=== PATIENT | female | born 1965 | race Caucasian/White ===

== ENCOUNTER 2022-12-04 12:23 | Emergency (ER) | payer OTHER, MEDICAID, SELFPAY ==
[2022-12-04] VITALS (11 sets, daily range): BP systolic 131–159; BP diastolic 75–104; PULSE 75–120; RESP 16–25; TEMP 36.2; O2SAT 94–100; BMI 29.9
[2022-12-04] MEDS: methylPREDNISolone 125 MG/2 ML VIAL (12:34)
[2022-12-04] MEDS: FAMOTIDINE 20 MG/2 ML VIAL IV (12:35)
--- NOTE | 2022-12-04 12:58 | ED.ALLEREA ---
HPI - Allergic Reaction General Chief complaint: Allergic Reaction Stated complaint: Stung 4x, Severely alergic Time Seen by Provider: 12/04/22 12:35 Source: patient Mode of arrival: Ambulatory History of Present Illness HPI narrative: Patient here for allergic reaction to bee sting. She has for bee stings 1 on the chest 1 on the hand 1 on the right thigh 1 on the right foot. She was cutting grass at home. She has allergy to bee stings. She did not use her EpiPen. She states over 20 years ago she was in [place] and had EpiPen given and since then the doctor at that time told her never to use it again because irregular heartbeat. Patient took 50 mg of Benadryl prior to arrival. Solu-Medrol IV and Pepcid IV given here. Patient is speaking full sentences. Airways intact. No respiratory distress. No intraoral pharyngeal swelling tongue swelling tongue elevation or drooling. Patient has friend at bedside, interacting very well. Patient felt her throat tight Related Data Previous Rx's Medication Instructions Recorded epinephrine 0.3 mg/0.3 mL 0.3 mg (0.3 mL) IM Q5-15M PRN 12/04/22 injection, auto-injector (EpiPen) anaphylaxis #2 ea famotidine 20 mg tablet 20 mg PO BID #14 tabs 12/04/22 methylprednisolone 4 mg tablets in See Rx Instructions PO .COMPLEX 12/04/22 a dose pack (Medrol (Bob)) #21 ea Allergies Allergy/AdvReac Type Severity Reaction Status Date / Time bee venom protein (honey bee) Allergy Anaphylaxis Verified 12/04/22 12:37 naproxen Allergy Anaphylaxis Verified 12/04/22 12:37 orange Allergy Verified 12/04/22 12:37 Penicillins Allergy Verified 12/04/22 12:37 Sulfa (Sulfonamide Allergy Verified 12/04/22 12:37 Antibiotics) Review of Systems Review of Systems Narrative: GENERAL: negative chills, fatigue, malaise, fever, sweats. HEENT: negative sinus pain, ear pain, sore throat RESPIRATORY: negative dyspnea, cough CARDIOVASCULAR: negative chest pain, palpitations GASTROINTESTINAL: negative nausea, vomiting, abdominal pain : negative dysuria, frequency, hematuria MUSCULOSKELETAL: negative muscle or bony pain SKIN: negative rash, skin lesions, positive insect bite/sting NEUROLOGIC: negative weakness, numbness ROS Unobtainable: All systems reviewed & are unremarkable except as noted in HPI and below Patient History Social History Smoking Status: Never smoker Smoking Status: Never smoker alcohol intake frequency: holidays/special occasions only Substance Use Type: does not use Exam Narrative Exam Narrative: GENERAL: in no distress, not toxic not dyspneic HEAD: Normocephalic. EYES: Pupils equal round ENT: Mucous membranes moist. No intraoral swelling edema no tongue elevation no tongue swelling no lip swelling no uvula swelling no midline shift no pharyngeal erythema edema. Patient is speaking full sentences. NECK: Trachea midline. No stridor CARDIOVASCULAR: Regular rate and rhythm without murmurs RESPIRATORY: Clear to auscultation. Breath sounds equal bilaterally. No wheezes, rales, or rhonchi. Clear and equal lung sounds, speaking full sentences GASTROINTESTINAL: Abdomen soft, non-tender EXTREMITIES: No gross deformities. BACK: No flank tenderness. NEURO: AOx4. SKIN: Warm and dry, visible bee sting on the right upper chest right hand right foot and right upper thigh, no stinger sac seen PSYCH: Not anxious, is cooperative Initial Vital Signs Initial Vital Signs: Vital Signs Temperature 97.1 F L 12/04/22 12:25 Pulse Rate 120 H 12/04/22 12:25 Respiratory Rate 20 12/04/22 12:25 Blood Pressure 157/104 H 12/04/22 12:25 Pulse Oximetry 99 12/04/22 12:25 Oxygen Delivery Method Room Air 12/04/22 12:25 Course Orders Ordered: Discontinued Medications Diphenhydramine HCl (Diphenhydramine 50 Mg/Ml Vial) 25 mg IV NOW ONE Stop: 12/04/22 13:49 Last Admin: 12/04/22 13:50 Dose: 25 mg Documented By: SAI Epinephrine HCl (Epinephrine 1 Mg/Ml) 0.3 mg IM NOW ONE Stop: 12/04/22 13:36 Last Admin: 12/04/22 13:38 Dose: 0.3 mg Documented By: SAI Sodium Chloride (Normal Saline 0.9%) 1,000 mls @ 1,000 mls/hr IV BOLUS ONE Stop: 12/04/22 14:01 Last Infusion: 12/04/22 14:57 Dose: 0 mls/hr Documented By: Admin: 12/04/22 13:28 Dose: 1,000 mls/hr Documented By: SAI Lorazepam (Lorazepam 2 Mg/Ml Inj) 0.5 mg IV NOW ONE Stop: 12/04/22 13:54 Last Admin: 12/04/22 15:33 Dose: 0.5 mg Documented By: SAI Vital Signs Vital signs: Vital Signs - 8 hr 12/04/22 12:25 12/04/22 12:33 12/04/22 12:33 Temperature 97.1 F L Pulse Rate 120 H 102 H Respiratory Rate 20 16 Blood Pressure 157/104 H 159/95 H 159/99 H Pulse Oximetry 99 99 Oxygen Delivery Method Room Air Room Air 12/04/22 13:00 12/04/22 13:00 12/04/22 13:30 Temperature Pulse Rate 92 H Respiratory Rate 20 Blood Pressure 155/101 H 145/95 H Pulse Oximetry 98 Oxygen Delivery Method 12/04/22 13:30 12/04/22 14:00 12/04/22 14:00 Temperature Pulse Rate 75 79 Respiratory Rate 20 24 Blood Pressure 152/86 H Pulse Oximetry 98 100 Oxygen Delivery Method 12/04/22 14:30 12/04/22 14:30 12/04/22 15:00 Temperature Pulse Rate 78 Respiratory Rate Blood Pressure 144/102 H 138/81 Pulse Oximetry 98 Oxygen Delivery Method 12/04/22 15:00 12/04/22 15:30 12/04/22 15:30 Temperature Pulse Rate 80 85 Respiratory Rate 22 20 Blood Pressure 146/81 H Pulse Oximetry 100 100 Oxygen Delivery Method 12/04/22 16:00 12/04/22 16:01 12/04/22 16:01 Temperature Pulse Rate 97 H 99 H Respiratory Rate 24 25 H Blood Pressure 150/83 H Pulse Oximetry 100 94 Oxygen Delivery Method 12/04/22 16:30 12/04/22 16:30 Temperature Pulse Rate 94 H Respiratory Rate 22 Blood Pressure 131/75 Pulse Oximetry 99 Oxygen Delivery Method MDM - Allergic Reaction MDM Narrative Medical decision making narrative: Patient here for allergic reaction to bee sting. She has for bee stings 1 on the chest 1 on the hand 1 on the right thigh 1 on the right foot. She was cutting grass at home. She has allergy to bee stings. She did not use her EpiPen. She states over 20 years ago she was in [place] and had EpiPen given and since then the doctor at that time told her never to use it again because irregular heartbeat. Patient took 50 mg of Benadryl prior to arrival. Solu-Medrol IV and Pepcid IV given here. Patient is speaking full sentences. Airways intact. No respiratory distress. No intraoral pharyngeal swelling tongue swelling tongue elevation or drooling. Patient has friend at bedside, interacting very well. 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 Pertinent findings: None indicated Imaging studies independently reviewed: None indicated Consultations: None indicated Treatments: Solu-Medrol Pepcid normal saline epinephrine Ativan, Ativan was given for anxiety. Benadryl Re-evaluations: 1:54 p.m.. Patient was given epinephrine 0.3 mg IM 15 minutes ago for sensation of itching everywhere and throat swelling and tongue swelling. On exam I do not see any swelling of these items. Benadryl 25 mg IV was added. However, it has been 15 minutes and patient states her tongue feels swollen. On exam I do not see any angioedema or swelling of the lips or tongue. She is feeling pruritic however I do not see any hives or rash on her arms or face or chest. She is speaking full sentences. Nurse at bedside speaking with her. She is in no airway distress. At this time there may be component of anxiety with everything that is going on, I will add 0.5 mg of Ativan 4:30 p.m.. Patient feeling much better. Has been observed for 4 hours here. No adverse events. She desires discharge home. Return precautions reviewed with her. She desires discharge home. Discussion: Appropriate for discharge home. Patient observed here for 4 hours. Not toxic. No adverse events. Airway intact. Patient desires discharge home. Diagnosis: Allergic reaction to bee sting Discharge Plan Departure Patient Disposition: Home Clinical Impression: Bee sting allergy Instructions: DI for Anaphylaxis Activity Restrictions/Additional Instructions: See family doctor within a week for re-evaluation. Call provided primary care referral phone number to establish family doctor. Call [phone]. Return immediately if any trouble breathing or any throat tightening or oral swelling. Please continue steroid pack tomorrow. Refill prescription for EpiPen has been provided. Return if worse if any questions or concerns. May take [id number] Benadryl for itching. Prescriptions: New epinephrine [EpiPen] 0.3 mg/0.3 mL auto-injector 0.3 mg IM Q5-15M PRN (Reason: anaphylaxis) Qty: 2 0RF Rx Instructions: do not exceed 3 doses per episode famotidine 20 mg tablet 20 mg PO BID Qty: 14 0RF methylprednisolone [Medrol (Bob)] 4 mg tablets,dose pack See Rx Instructions .ROUTE .COMPLEX Qty: 21 0RF Rx Instructions: orally per package directions Stand Alone Forms: Patient Portal/API
[2022-12-04] MEDS: SODIUM CHLORIDE 0.9% 1,000 ML 1000 ML IV (13:28)
[2022-12-04] MEDS: EPINEPHrine 1 MG/ML 0.3 MG IM (13:38)
[2022-12-04] MEDS: diphenhydrAMINE 50 MG/ML VIAL 25 MG IV (13:50)
[2022-12-04] MEDS: LORazepam 2 MG/ML INJ 0.5 MG IV (15:33)
== END 2022-12-04 16:47 | disposition home or self-care (01) ==
PROVIDERS: Emergency Provider Emergency Medicine
DX: T63.441A Toxic effect of venom of bees, accidental (unintentional), initial encounter (principal); L29.9 Pruritus, unspecified
CPT/HCPCS: 96361; 96372; 96374; 96375; 99284; J0171; J1200; J2060; J2930

== ENCOUNTER 2023-11-06 12:24 | Emergency (ER) | payer MEDICAID, OTHER, SELFPAY ==
[2023-11-06 12:47] VITALS: BP 177/88; PULSE 67; RESP 20; TEMP 37; O2SAT 99; BMI 29.8
--- NOTE | 2023-11-06 13:21 | DI.RAD.S_ITS ---
PROCEDURE: XR CHEST 1V INDICATIONS: Hypertension TECHNIQUE: One view of the chest was acquired. COMPARISON: None. FINDINGS: Surgical changes and devices: None. Lungs and pleura: Medial right lower lung zone opacity. Mediastinum: Mediastinal contours appear normal. Heart size is normal. Bones and chest wall: No suspicious bony lesions. Overlying soft tissues appear unremarkable. IMPRESSION: Medial right lower lung zone opacity could represent atelectasis or infection. Dictated by: Rusty Gonzalez M.D. on 11/06/2023 at 13:55 Approved by: Rusty Gonzalez M.D. on 11/06/2023 at 13:56
--- NOTE | 2023-11-06 14:23 | EKG_ITS ---
[place] [id number] [place] [id number] Test Date: 2023-11-06 Pat Name: Miles Bauer Department: 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
[2023-11-06 14:24] LABS: Add Manual Diff / Slide Review NO; Basophils Absolute Auto 100 /uL (0-100); Basophils Percent Auto 1.2 % (0-2); Eosinophils Absolute Auto 100 /uL (0-450); Eosinophils Percent Auto 1.4 % (2-4); Hematocrit 41.5 % (36-46); Hemoglobin 13.7 g/dL (12.0-16.0); Lymphocytes Absolute Auto 1400 /uL (1100-4500); Lymphocytes Percent Auto 26.3 % (25-40); Mean Corpuscular Hemoglobin 28.2 PG (26-34); Mean Corpuscular Volume 85.3 fL (80-100); Monocytes Absolute Auto 400 /uL (0-900); Monocytes Percent Auto 7.1 % (3-14); Neutrophils Absolute Auto 3300 /uL (1500-7000); Platelet Count 267 X10^3/uL (150-400); Red Blood Cell Count 4.87 X10^6/uL (4.0-5.2); Red Cell Distribution Width 14.2 % (11.6-14.8); White Blood Cell Count 5.1 X10^3/uL (4.5-11.0)
[2023-11-06 14:37] LABS: Creatine Kinase 44 U/L (30-135)
[2023-11-06 14:50] LABS: Troponin I < 0.012 ng/mL (0.01-0.034)
[2023-11-06 14:53] LABS: Alanine Aminotransferase 17 IU/L (<35); Albumin 4.7 g/dL (3.5-5.0); Albumin Globulin Ratio 1.7 (1.0-2.8); Alkaline Phosphatase 82 U/L (38-126); Aspartate Aminotransferase 23 IU/L (14-36); BUN Creatinine Ratio 14.9 (6-22); Bilirubin Total 0.5 mg/dL (0.2-1.3); Blood Urea Nitrogen 11 mg/dL (7-17); Calcium 9.5 mg/dL (8.4-10.2); Carbon Dioxide 27 mmol/L (22-32); Chloride 107 mmol/L (98-107); Estimated Glomerular Filt Rate > 60 mL/min (>60); Globulin 2.8 g/dL (1.7-4.1); Glucose 88 mg/dL (80-110); HEMOLYSIS < 15 (0-50); Lipase 94 U/L (23-300); Potassium 3.9 mmol/L (3.4-5.1); Sodium 140 mmol/L (137-145); Total Protein 7.5 g/dL (6.3-8.2)
[2023-11-06 14:55] VITALS: BP 184/106; PULSE 61; O2SAT 99
[2023-11-06 15:00] VITALS: BP 191/105; PULSE 64; RESP 19; O2SAT 99
--- NOTE | 2023-11-06 15:11 | PC.NURSE ---
pt reports some lightheadedness but states that she hasnt had anything to eat today. reports no chest pain, n/v. states that she feels just like normal. was encouraged to come in by telehealth insurance nurse. does not have PCP
--- NOTE | 2023-11-06 15:19 | ED.GENADULT ---
HPI - General Adult General Chief complaint: Hypertension Stated complaint: HBP sent by PCP Time Seen by Provider: 11/06/23 14:13 Source: patient Mode of arrival: Ambulatory History of Present Illness HPI narrative: Patient is a 58-year-old female who came to the emergency department today for evaluation of high blood pressure. She does not have a primary care doctor. She did have a telehealth appointment this morning. She states she has been feeling somewhat lightheaded. Has a history of asthma but no change in shortness of breath. No chest pain. No history of high blood pressure. She states that she had a family member who had a ?health scare? earlier this year which prompted her to start taking her blood pressures at home. They have run anywhere from a systolic in the 130s to 170s. Her blood pressure this morning was somewhat more elevated than normal which prompted her to make the telehealth visit and visit here to the ER. Related Data Previous Rx's Medication Instructions Recorded epinephrine 0.3 mg/0.3 mL 0.3 mg (0.3 mL) IM Q5-15M PRN 12/04/22 injection, auto-injector (EpiPen) anaphylaxis #2 ea famotidine 20 mg tablet 20 mg PO BID #14 tabs 12/04/22 methylprednisolone 4 mg tablets in See Rx Instructions PO .COMPLEX 12/04/22 a dose pack (Medrol (Bob)) #21 ea lisinopril 10 mg tablet 10 mg PO DAILY #30 tabs 11/06/23 Allergies Allergy/AdvReac Type Severity Reaction Status Date / Time bee venom protein (honey bee) Allergy Anaphylaxis Verified 12/04/22 12:37 naproxen Allergy Anaphylaxis Verified 12/04/22 12:37 orange Allergy Verified 12/04/22 12:37 Penicillins Allergy Verified 12/04/22 12:37 Sulfa (Sulfonamide Allergy Verified 12/04/22 12:37 Antibiotics) Review of Systems Review of Systems Narrative: See HPI Patient History Social History Smoking Status: Never smoker Smoking Status: Never smoker alcohol intake frequency: holidays/special occasions only Substance Use Type: does not use Exam Initial Vital Signs Initial Vital Signs: Vital Signs Temperature 98.6 F 11/06/23 12:47 Pulse Rate 67 11/06/23 12:47 Respiratory Rate 20 11/06/23 12:47 Blood Pressure 177/88 H 11/06/23 12:47 Pulse Oximetry 99 11/06/23 12:47 Oxygen Delivery Method Room Air 11/06/23 12:47 Const General: cooperative, comfortable and No ill appearing HENKY Head: normal to inspection and normocephalic Resp Effort & Inspection: normal respiratory effort Auscultation: clear to auscultation bilaterally Cardio Rate: regular rate Rhythm: regular rhythm Neuro General: patient alert, patient awake and moves all extremities Extrem General: No edema Course Orders Ordered: ED Orders 11/06/23 13:21 XR chest 1V Stat EKG-12 Lead Stat 11/06/23 14:16 Complete Blood Count AUTO DIFF Stat Comprehensive Metabolic Panel Stat Lipase Stat Troponin & CK Cardiac Panel Stat Vital Signs Vital signs: Vital Signs - 8 hr 11/06/23 12:47 11/06/23 14:55 11/06/23 14:55 Temperature 98.6 F Pulse Rate 67 61 Respiratory Rate 20 Blood Pressure 177/88 H 184/106 H Pulse Oximetry 99 99 Oxygen Delivery Method Room Air 11/06/23 15:00 11/06/23 15:00 Temperature Pulse Rate 64 Respiratory Rate 19 Blood Pressure 191/105 H Pulse Oximetry 99 Oxygen Delivery Method Medical Decision Making Lab Data Lab results reviewed: Yes I reviewed the patient's lab results. 11/06/23 14:16 11/06/23 14:16 Labs: Lab Results 11/06/23 Range/Units 14:16 WBC 5.1 (4.5-11.0) X10^3/uL RBC 4.87 (4.0-5.2) X10^6/uL Hgb 13.7 (12.0-16.0) g/dL Hct 41.5 (36-46) % MCV 85.3 (80-100) fL MCH 28.2 (26-34) PG MCHC 33.0 (30-36) % RDW 14.2 (11.6-14.8) % Plt Count 267 (150-400) X10^3/uL Neut % (Auto) 64.0 (50-75) % Lymph % (Auto) 26.3 (25-40) % [place] % (Auto) 7.1 (3-14) % Eos % (Auto) 1.4 L (2-4) % Baso % (Auto) 1.2 (0-2) % Neut # (Auto) 3300 (9605-0518) /uL Lymph # (Auto) 1400 (0607-6582) /uL [place] # (Auto) 400 (0-900) /uL Eos # (Auto) 100 (0-450) /uL Baso # (Auto) 100 (0-100) /uL Sodium 140 (137-145) mmol/L Potassium 3.9 (3.4-5.1) mmol/L Chloride 107 (98-107) mmol/L Carbon Dioxide 27 (22-32) mmol/L BUN 11 (7-17) mg/dL Creatinine 0.74 (0.52-1.04) mg/dL Estimated GFR > 60 (>60) mL/min BUN/Creatinine Ratio 14.9 (6-22) Glucose 88 (80-110) mg/dL Calcium 9.5 (8.4-10.2) mg/dL Total Bilirubin 0.5 (0.2-1.3) mg/dL AST 23 (14-36) IU/L ALT 17 (<35) IU/L Alkaline Phosphatase 82 (38-126) U/L Total Creatine Kinase 44 (30-135) U/L Troponin I < 0.012 (0.01-0.034) ng/mL Total Protein 7.5 (6.3-8.2) g/dL Albumin 4.7 (3.5-5.0) g/dL Globulin 2.8 (1.7-4.1) g/dL Albumin/Globulin Ratio 1.7 (1.0-2.8) Lipase 94 (23-300) U/L Imaging Data Chest x-ray: Radiologist's Impression: PROCEDURE: XR CHEST 1V INDICATIONS: Hypertension TECHNIQUE: One view of the chest was acquired. COMPARISON: None. FINDINGS: Surgical changes and devices: None. Lungs and pleura: Medial right lower lung zone opacity. Mediastinum: Mediastinal contours appear normal. Heart size is normal. Bones and chest wall: No suspicious bony lesions. Overlying soft tissues appear unremarkable. IMPRESSION: Medial right lower lung zone opacity could represent atelectasis or infection. ECG Data Attestation: I personally reviewed and interpreted this ECG as follows: Interpretation: Sinus rhythm Ventricular rate is 64 LVH Normal axis No ST T wave changes MDM Narrative Medical decision making narrative: Asymptomatic hypertension here in the emergency department today. Low suspicion for ACS, CVA, TIA, heart failure. Not in renal failure. No lower extremity swelling. Since she was taken her blood pressure daily over the past week and has had a systolic blood pressure greater than 140 most of the time will start her on a low-dose lisinopril. Also recommended that she make contact with the primary care doctor so that they can discuss follow on care. Patient expressed understanding and agreement with plan. Discharge Plan Departure Patient Disposition: Home Clinical Impression: Hypertension Instructions: DI for High Blood Pressure Activity Restrictions/Additional Instructions: It is important that you make contact with the primary care doctor. You can contact [phone]. They can help you establish a primary doctor here in the local area. Take the lisinopril as directed. Continue to take your blood pressure at home like we discussed. Return to the emergency department for new symptoms. Prescriptions: New lisinopril 10 mg tablet 10 mg PO DAILY Qty: 30 3RF No Action epinephrine [EpiPen] 0.3 mg/0.3 mL auto-injector 0.3 mg IM Q5-15M PRN (Reason: anaphylaxis) Qty: 2 0RF Rx Instructions: do not exceed 3 doses per episode famotidine 20 mg tablet 20 mg PO BID Qty: 14 0RF methylprednisolone [Medrol (Bob)] 4 mg tablets,dose pack See Rx Instructions .ROUTE .COMPLEX Qty: 21 0RF Rx Instructions: orally per package directions Referrals: Miscellaneous,Doctor, MD [Primary Care Provider] - Stand Alone Forms: Patient Portal/API
[2023-11-06 15:30] VITALS: BP 172/99; PULSE 66; RESP 22; O2SAT 97
== END 2023-11-06 15:40 | disposition home or self-care (01) ==
PROVIDERS: Emergency Provider Emergency Medicine
DX: I10 Essential (primary) hypertension (principal)
CPT/HCPCS: 36415; 71045; 80053; 82550; 83690; 84484; 85025; 93005; 99283; 99284

== ENCOUNTER → 2023-11-10 14:41 | Outpatient (CLI) | payer MEDICAID, OTHER, SELFPAY ==
[2023-11-10 15:42] LABS: Creatine Kinase 60 U/L (30-135)
[2023-11-12 17:40] LABS: DNA (DS) Antibody 12 IU/mL (0-9); JO-1 Antibody <0.2 AI (0.0-0.9)
[2023-11-12 20:07] LABS: SS A Ro Sjogrens Antibody < 0.2 AI (0.0-0.9); SS B La Sjogrens Antibody < 0.2 AI (0.0-0.9)
== END ==
LOC: LAB 14:44
DX: M33.90 Dermatopolymyositis, unspecified, organ involvement unspecified (principal); L40.8 Other psoriasis; Z79.899 Other long term (current) drug therapy
CPT/HCPCS: 36415; 82085; 82550; 86038; 86225; 86235

== ENCOUNTER → 2023-12-07 10:30 | Outpatient (CLI) | payer OTHER, MEDICAID, SELFPAY ==
--- NOTE | 2023-12-07 10:38 | DI.RAD.S_ITS ---
PROCEDURE: XR HAND RT MIN 3V INDICATIONS: PAIN TECHNIQUE: 3 in views of the hand(s) acquired. COMPARISON: None. FINDINGS: Bones: No fractures or dislocations. Carpal bones are normally aligned. No suspicious bony lesions. Osteoarthritic changes to the carpal carpal joints, carpometacarpal joints and the DIP joints. Soft tissues: No suspicious soft tissue calcifications. IMPRESSION: No acute osseous process. Osteoarthritic changes. Dictated by: Zaire Vizcarra M.D. on 12/07/2023 at 13:38 Approved by: Zaire Vizcarra M.D. on 12/07/2023 at 13:42
--- NOTE | 2023-12-07 10:38 | DI.RAD.S_ITS ---
PROCEDURE: XR KNEE RT 3V INDICATIONS: PAIN TECHNIQUE: 3 views of the knee were acquired. COMPARISON: None. FINDINGS: Bones: No fractures or dislocations. No suspicious bony lesions. Tricompartmental osteoarthritis. Incidental fabella. Incidental bilateral patella Alexa. Soft tissues: No sizable joint effusion. No suspicious soft tissue calcifications. IMPRESSION: 1. No acute osseous process. 2. Tricompartmental osteoarthritis. 3. Incidental bilateral patella Alexa. Dictated by: Zaire Vizcarra M.D. on 12/07/2023 at 13:47 Approved by: Zaire Vizcarra M.D. on 12/07/2023 at 13:52
--- NOTE | 2023-12-07 10:38 | DI.RAD.S_ITS ---
PROCEDURE: XR KNEE LT 3V INDICATIONS: PAIN TECHNIQUE: 3 views of the knee were acquired. COMPARISON: None. FINDINGS: Bones: No acute fracture or dislocation. Incidental fabella. Tricompartmental osteoarthritis. Soft tissues: No sizable joint effusion. No suspicious soft tissue calcifications. IMPRESSION: No acute osseous process. Tricompartmental osteoarthritis. Dictated by: Zaire Vizcarra M.D. on 12/07/2023 at 13:42 Approved by: Zaire Vizcarra M.D. on 12/07/2023 at 13:47
--- NOTE | 2023-12-07 10:38 | DI.RAD.S_ITS ---
PROCEDURE: XR LUMBAR SPINE 2-3V INDICATIONS: PAIN TECHNIQUE: 3 views of the lumbar spine were acquired. COMPARISON: None. FINDINGS: Bones: 5 [id number] vertebrae are present. Grade 1 anterolisthesis of L5 on S1. No vertebral body compression fractures. No suspicious bony lesions. Multilevel facet arthropathy. Mild multilevel disc height loss. Osteoarthritis to both SI joints. Soft tissues: Overlying bowel gas pattern is normal. No suspicious soft tissue calcifications. IMPRESSION: 1. No acute fracture or subluxation. 2. Grade 1 anterolisthesis of L5 on S1. Dictated by: Zaire Vizcarra M.D. on 12/07/2023 at 14:36 Approved by: Zaire Vizcarra M.D. on 12/07/2023 at 14:40
--- NOTE | 2023-12-07 10:38 | DI.RAD.S_ITS ---
PROCEDURE: XR THORACIC SPINE 2V INDICATIONS: PAIN TECHNIQUE: 2 views of the thoracic spine were acquired. COMPARISON: None. FINDINGS: Bones: No fractures or dislocations. No suspicious bony lesions. 12 pairs of ribs are noted, and appear intact where visualized. Mild multilevel disc height loss. Multilevel anterior disc osteophytes. Soft tissues: No paravertebral stripe thickening. IMPRESSION: No acute fracture or subluxation. Dictated by: Zaire Vizcarra M.D. on 12/07/2023 at 14:40 Approved by: Zaire Vizcarra M.D. on 12/07/2023 at 14:45
--- NOTE | 2023-12-07 10:38 | DI.RAD.S_ITS ---
PROCEDURE: XR HAND LT MIN 3V INDICATIONS: PAIN TECHNIQUE: 3 none views of the hand(s) acquired. COMPARISON: None. FINDINGS: Bones: No fractures or dislocations. Carpal bones are normally aligned. No suspicious bony lesions. Osteoarthritic changes to the carpal metacarpal joints and carpal carpal joints. The bones are mildly osteopenic. Soft tissues: No suspicious soft tissue calcifications. IMPRESSION: No acute bony abnormality. Dictated by: Zaire Vizcarar M.D. on 12/07/2023 at 13:35 Approved by: Zaire Vizcarra M.D. on 12/07/2023 at 13:38
[2023-12-07 12:18] LABS: Add Manual Diff / Slide Review NO; Basophils Absolute Auto 0 /uL (0-100); Basophils Percent Auto 1.1 % (0-2); Eosinophils Absolute Auto 100 /uL (0-450); Eosinophils Percent Auto 1.4 % (2-4); Hematocrit 39.4 % (36-46); Hemoglobin 13.2 g/dL (12.0-16.0); Lymphocytes Absolute Auto 1000 /uL (1100-4500); Lymphocytes Percent Auto 24.6 % (25-40); Mean Corpuscular HGB Conc 33.5 % (30-36); Mean Corpuscular Hemoglobin 28.6 PG (26-34); Mean Corpuscular Volume 85.2 fL (80-100); Monocytes Absolute Auto 300 /uL (0-900); Neutrophils Absolute Auto 2700 /uL (1500-7000); Neutrophils Percent Auto 65.9 % (50-75); Platelet Count 242 X10^3/uL (150-400); Red Blood Cell Count 4.62 X10^6/uL (4.0-5.2); White Blood Cell Count 4.1 X10^3/uL (4.5-11.0)
[2023-12-07 12:27] LABS: Alanine Aminotransferase 14 IU/L (<35); Albumin 4.3 g/dL (3.5-5.0); Albumin Globulin Ratio 1.8 (1.0-2.8); Alkaline Phosphatase 85 U/L (38-126); Aspartate Aminotransferase 22 IU/L (14-36); BUN Creatinine Ratio 16.2 (6-22); Bilirubin Total 0.6 mg/dL (0.2-1.3); Blood Urea Nitrogen 12 mg/dL (7-17); Calcium 9.1 mg/dL (8.4-10.2); Carbon Dioxide 23 mmol/L (22-32); Chloride 108 mmol/L (98-107); Cholesterol 246 mg/dL (140-199); Estimated Glomerular Filt Rate > 60 mL/min (>60); Globulin 2.4 g/dL (1.7-4.1); Glucose 96 mg/dL (80-110); HDL Cholesterol 78 mg/dL (40-60); HEMOLYSIS < 15 (0-50); LDL Cholesterol Calculated 152 mg/dL (<100); Sodium 139 mmol/L (137-145); Total Protein 6.7 g/dL (6.3-8.2); Triglycerides 79 mg/dL (35-150)
[2023-12-07 12:29] LABS: Rheumatoid Factor < 8.6 IU/mL (<12.0)
[2023-12-07 12:41] LABS: Free T4, Direct Thyroxine 0.98 ng/dL (0.78-2.19)
[2023-12-07 12:55] LABS: Thyroid Stimulating Hormone 1.96 uIU/mL (0.47-4.68)
[2023-12-09 09:16] LABS: CCP Antibodies IgG/IgA 6 units (0-19)
== END ==
LOC: RAD 10:34
PROVIDERS: PCP Nurse Practitioner Family; Referring Provider Nurse Practitioner Family; Visit Provider Nurse Practitioner Family
DX: M17.0 Bilateral primary osteoarthritis of knee (principal); M22.8X1 Other disorders of patella, right knee; M43.17 Spondylolisthesis, lumbosacral region; M79.641 Pain in right hand; M79.642 Pain in left hand; M25.561 Pain in right knee; M25.562 Pain in left knee; M54.50 Low back pain, unspecified; F41.9 Anxiety disorder, unspecified; Z13.1 Encounter for screening for diabetes mellitus; Z13.220 Encounter for screening for lipoid disorders; M25.50 Pain in unspecified joint; D72.819 Decreased white blood cell count, unspecified
CPT/HCPCS: 36415; 72070; 72100; 73130; 73562; 80053; 80061; 81374; 84439; 84443; 85025; 86200; 86430

== ENCOUNTER → 2023-12-17 11:10 | Outpatient (CLI) | payer OTHER, MEDICAID, SELFPAY ==
--- NOTE | 2023-12-17 11:12 | DI.RAD.S_ITS ---
PROCEDURE: XR DEXA AXIAL SKELETON INDICATIONS: MENOPAUSAL SYNDROME COMPARISON: None. FINDINGS: Lumbar Spine: Bone mineral density 0 point 685 g/cm2, T score -3.0. Left Hip: Bone mineral density 0.689 g/cm2, T score -2.1. Left Femoral Neck: Bone mineral density 0.568 g/cm2, T score -2.5. Right Hip: Bone mineral density 0.685 g/cm2, T score -2.1. Right Femoral Neck: Bone mineral density is 0.624 g/cm2, T score -2.0. Fracture Risk Calculation (when applicable): 10-year fracture risk of a major osteoporotic fracture 11% and of a hip fracture 1.9%. (T score greater or equal to -1.0 to: NORMAL) (T score from -1.1 to -2.4: OSTEOPENIA) (T score less than or equal to -2.5: OSTEOPOROSIS) IMPRESSION: Osteoporosis. Follow-up guidelines as follows: Osteoporosis: Consider a repeat DEXA and Vertebral Fracture Assessment (VFA) exam in 2 years or sooner if medically necessary, to reassess this patient's status. Osteopenia: Consider a repeat DEXA in 2-3 years to reassess this patient's status, or if there is a new clinical indication. Normal: Consider a repeat DEXA in 5 years or sooner, or if there is a new clinical indication. All treatment decisions require clinical judgment and consideration of individual patient factors, including patient preferences, comorbidities, previous drug use, risk factors not captured in the FRAX model (e.g., frailty, falls, vitamin D deficiency, increased bone turnover, interval significant decline in bone density ) and possible under- or over-estimation of fracture risk by FRAX. In addition, the NOF Guide recommends that FDA-approved medical therapies be considered in postmenopausal women and men age >= 50 years with a: * Hip or vertebral (clinical or morphometric) fracture * T-score of <=-2.5 at the spine or hip * Ten-year fracture probability by FRAX of >= 3% for hip fracture or >=20% for major osteoporotic fracture. People with diagnosed cases of osteoporosis or at high risk for fracture should have regular bone mineral density tests. For patients eligible for Medicare, routine testing is allowed once every 2 years. The testing frequency can be increased to one year for patients who have rapidly progressing disease, those who are receiving or discontinuing medical therapy to restore bone mass, or have additional risk factors. Dictated by: Brock Brady M.D. on 12/17/2023 at 15:16 Approved by: Brock Brady M.D. on 12/17/2023 at 15:22
== END ==
PROVIDERS: PCP Nurse Practitioner Family; Referring Provider Nurse Practitioner Family; Visit Provider Nurse Practitioner Family
DX: M81.0 Age-related osteoporosis without current pathological fracture (principal); N95.9 Unspecified menopausal and perimenopausal disorder
CPT/HCPCS: 77080

== ENCOUNTER → 2023-12-21 09:11 | Outpatient (CLI) | payer OTHER, MEDICAID, SELFPAY ==
[2023-12-21 10:32] LABS: Vitamin D 25 Hydroxy (D3) 29.7 ng/mL (30.0-100.0)
[2023-12-23 01:12] LABS: Parathyroid Hormone Int 33 pg/mL (15-65)
== END ==
PROVIDERS: PCP Nurse Practitioner Family; Referring Provider Nurse Practitioner Family; Visit Provider Nurse Practitioner Family
DX: M81.0 Age-related osteoporosis without current pathological fracture (principal)
CPT/HCPCS: 36415; 82306; 83970